=== PATIENT | male | born 2000 | race Hispanic/Latino ===

== ENCOUNTER 2022-02-05 09:39 | Emergency (ER) | payer SELFPAY ==
[~2022-02-05] VITALS: Ht 157.5 cm; Wt 81.6 kg
[2022-02-05] MEDS ORDERED: LIDOCAINE HCL MPF 1% 5ML VIAL ONE (10:25)
[2022-02-05] MEDS ORDERED: TETANUS/DIPHTHERIA TOXOID [ADULT] 0.5 ML VIAL IM ONE (10:43)
[2022-02-05] MEDS ORDERED: AMOX1TAB16 PO (11:12)
[2022-02-05] MEDS ORDERED: IBUP-2070 PO (11:12)
[2022-02-05] MEDS ORDERED: AMOX/CLAV 875/125MG TAB PO SCH (11:30)
[2022-02-05 11:42] VITALS: BP 123/69
== END 2022-02-05 11:53 | disposition home or self-care (01) ==
LOC: EDH 09:39
DX: S51.811A Laceration without foreign body of right forearm, initial encounter (principal); X58.XXXA Exposure to other specified factors, initial encounter; Y93.89 Activity, other specified; Y92.89 Other specified places as the place of occurrence of the external cause; Y99.8 Other external cause status
CPT/HCPCS: 12004; 73090; 90471; 90714; 99283; J3490

== ENCOUNTER 2022-02-12 12:05 | Emergency (ER) | payer SELFPAY ==
[~2022-02-12] VITALS: Ht 157.5 cm; Wt 81.6 kg
[~2022-02-12 12:05] MED LIST: AMOX1TAB16 PO; IBUP-2070 PO
[2022-02-12 12:13] VITALS: BP 122/58
== END 2022-02-12 13:07 | disposition home or self-care (01) ==
LOC: EDH 12:05
DX: S51.811D Laceration without foreign body of right forearm, subsequent encounter (principal); X58.XXXD Exposure to other specified factors, subsequent encounter
CPT/HCPCS: 99281